=== PATIENT | female | born 1990 | race African-American/Black ===

== ENCOUNTER 2019-04-15 11:52 | Day surgery (SDC) | payer OTHER ==
[~2019-04-15 11:52] MED LIST: NACL 0.9% 1000 ML 1,000 ML IV SCH
[2019-04-15] MEDS ORDERED: DIPRIVAN 10 MG/ML IV ONE ×2 (12:50→12:51)
--- NOTE | 2019-04-15 13:56 | Anesthesia Consultation ---
Anesthesia Consult and Med Hx Date of service: 04/15/19 - Airway Anesthetic Teeth Evaluation: Good ROM Head & Neck: Adequate Mental/Hyoid Distance: Adequate Mallampati Class: Class II Intubation Access Assessment: Probably Good - Pulmonary Exam CTA: Yes - Cardiac Exam Cardiac Exam: RRR - Pre-Operative Health Status ASA Pre-Surgery Classification: ASA1 Proposed Anesthetic Plan: MAC - Pulmonary Hx Respiratory Symptoms: No - Cardiovascular System Hx Hypertension: No Hx Heart Attack/AMI: No - Central Nervous System CVA: No Hx Psychiatric Problems: Yes (depression) - Gastrointestinal Hx Gastroesophageal Reflux Disease: No - Endocrine Hx Renal Disease: No Hx Liver Disease: No Hx Insulin Dependent Diabetes: No Hx Thyroid Disease: No - Other Systems Hx Obesity: Yes - Additional Comments Anesthesia Medical History Comments: No hx anesthetic complications.
--- NOTE | 2019-04-15 13:57 | Anesthesia Day of Surgery ---
Anesthesia Day of Surgery - Day of Surgery Patient Examined: Yes Patient H&P Reviewed: Yes Patient is NPO: Yes
--- NOTE | 2019-04-15 14:48 | Operative Report ---
Operative Report Operative Report: Date of procedure: 04/15/2019 Procedure: Colonoscopy. Attending physician: Yoni Mayfield MD Head Of Sales Promotion: Yoni Mayfield MD Indication: Patient is a 29-year-old female who presents for evaluation of constipation and rectal bleeding.. A colonoscopy serves to evaluate patient so that treatment may be directed based on the findings. Consent: Informed consent was obtained after advising the patient and family regarding nature of this procedure, its indications, potential benefits as well as possible complications including but not limited to bleeding perforation and adverse reaction to medication, infection as well as other cardiopulmonary complications. An informed written and verbal consent was then obtained after due opportunity was provided for questions and answers. Monitoring: Patient was monitored continuously with pulse oximetry and electrocardiographic recordings as well as blood pressure recordings. Vital signs remained stable throughout this procedure with no untoward events. Preoperative assessment: Patient was assessed immediately prior to this procedure for capacity to tolerate monitored anesthesia care and moderate sedation as well as general anesthesia. Patient's ASA classification is 2, Mallampati class is 2, Hyomental distance is 3. Instrument: Hid[employer]Im[employer] video colonoscope Medications: Propofol given intravenously in divided doses. For details please refer to anesthesia records. Description of procedure: Patient was placed in the left lateral decubitus position after achieving sedation, a digital rectal examination was performed following which the colonoscope was introduced into the anal verge and advanced to the cecum which was identified by the cecal valve, the appendiceal orifice, as well as by the cecal strap and direct transillumination. The colonoscope was subsequently withdrawn with careful inspection of all mucosal surfaces. Patient tolerated this procedure well and was subsequently taken to the recovery room. The following findings were noted. Findings: The preparation was adequate. The entirety of the colon was normal. On the retroflexed view at the anal verge, patient had internal hemorrhoids. Impression: Internal hemorrhoids, otherwise normal colonoscopy. Plan: High-fiber diet. When necessary stool softeners When necessary hemorrhoidal suppositories May benefit from hemorrhoidal band ligation in the future if patient has recurrent bleeding.
--- NOTE | 2019-04-15 14:48 | Discharge Summary ---
Short Stay Discharge Plan Activity: advance as tolerated Weight Bearing Status: Weight Bear as Tolerated Diet: regular Follow up with: [facility] [Primary Care Provider] - 7 Days
[2019-04-15 15:15] VITALS: BP 132/85
== END 2019-04-15 11:53 | disposition home or self-care (01) ==
LOC: GIO 11:52
PROVIDERS: ATTEND Internal Medicine Gastroenterology
DX: K64.8 Other hemorrhoids (principal); K59.00 Constipation, unspecified; K62.5 Hemorrhage of anus and rectum; E66.9 Obesity, unspecified; F32.9 Major depressive disorder, single episode, unspecified; Z79.899 Other long term (current) drug therapy; Z88.8 Allergy status to other drugs, medicaments and biological substances; Z68.38 Body mass index [BMI] 38.0-38.9, adult
CPT/HCPCS: 81025; J2704; J7030